=== PATIENT | female | born 1955 | race Asian ===

== ENCOUNTER 2016-05-15 12:27 | Emergency (ER) | payer OTHER | END 2016-05-15 19:30 | disposition other institution (70) | LOC: ER 12:27 | DX: G45.9 Transient cerebral ischemic attack, unspecified (principal); Z79.899 Other long term (current) drug therapy; I10 Essential (primary) hypertension | CPT/HCPCS: 36415; 70450; 70496; 70498; 71010; 80053; 81001; 82947; 85025; 85610; 87088; 93005 ==